=== PATIENT | female | born 1980 | race Caucasian/White ===

== ENCOUNTER 2018-06-27 16:42 | Emergency (ER) | payer BC, OTHER ==
[2018-06-27 17:19] VITALS: BP 115/74
[2018-06-27] MEDS ORDERED: Acetaminophen TAB* 325 MG PO ONE (17:54)
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
== END 2018-06-27 18:04 | disposition home or self-care (01) ==
LOC: UCCORT 16:42
DX: S29.012A Strain of muscle and tendon of back wall of thorax, initial encounter (principal); S16.1XXA Strain of muscle, fascia and tendon at neck level, initial encounter; V43.52XA Car driver injured in collision with other type car in traffic accident, initial encounter; Y93.89 Activity, other specified; Y92.410 Unspecified street and highway as the place of occurrence of the external cause; Z88.0 Allergy status to penicillin; Z88.8 Allergy status to other drugs, medicaments and biological substances; Z88.1 Allergy status to other antibiotic agents
CPT/HCPCS: 99212; A9270-GY; G0463